=== PATIENT | female | born 1970 ===

== ENCOUNTER 2018-01-16 15:37 | Emergency (ER) | payer MEDICAID ==
[2018-01-16 15:37] VITALS: BMI 28.1
[2018-01-16 16:10] VITALS: BP 146/79; PULSE 94; RESP 18; TEMP 99.6; O2SAT 98
--- NOTE | 2018-01-16 16:36 | ED PDOC ---
HPI: General Adult Time Seen by Provider: 01/16/18 16:14 Chief Complaint (Nursing): Flu-like Symptoms Chief Complaint (Provider): Flu like symptoms History Per: Patient Additional Complaint(s): Pt is a 47 yo female, denies any PMH, presents to ED with c/o headache, fever, bodyaches for 3 days. No medications taken for symptomatic relief thus far. Past Medical History Reviewed: Nursing Documentation, Vital Signs Vital Signs: Last Vital Signs Temp 99.6 F 01/16/18 16:08 Pulse 94 H 01/16/18 16:08 Resp 18 01/16/18 16:08 BP 146/79 01/16/18 16:08 Pulse Ox 98 01/17/18 22:12 - Medical History PMH: No Chronic Diseases - Surgical History Surgical History: - Family History Family History: States: Stroke, [place], Hypertension - Living Arrangements Living Arrangements: With Family - Social History Current smoker - smoking cessation education provided: No Alcohol: Social Drugs: Denies - Home Medications Home Medications: Ambulatory Orders Medication Instructions Recorded Oseltamivir [Tamiflu] 75 mg PO BID 5 Days cap 01/16/18 - Allergies Allergies/Adverse Reactions: Allergies Allergy/AdvReac Type Severity Reaction Status Date / Time peanut Allergy SHORTNESS Verified 01/16/18 16:07 OF BREATH Penicillins Allergy RASH Verified 01/16/18 16:07 Review of Systems ROS Statement: Except As Marked, All Systems Reviewed And Found Negative Constitutional: Positive for: Fever ENT: Positive for: Nose Congestion Respiratory: Positive for: Cough Physical Exam - Reviewed Nursing Documentation Reviewed: Yes Vital Signs Reviewed: Yes - Physical Exam Appears: Positive for: Well, Non-toxic, No Acute Distress Head Exam: Positive for: ATRAUMATIC, NORMAL INSPECTION, NORMOCEPHALIC Skin: Positive for: Normal Color, Warm, DRY Eye Exam: Positive for: EOMI, Normal appearance, PERRL ENT: Positive for: Normal ENT Inspection Neck: Positive for: Normal, Painless ROM Cardiovascular/Chest: Positive for: Regular Rate, Rhythm Respiratory: Positive for: CNT, Normal Breath Sounds Gastrointestinal/Abdominal: Positive for: Normal Exam, Bowel Sounds, Soft Back: Positive for: Normal Inspection Extremity: Positive for: Normal ROM Neurologic/Psych: Positive for: Alert, Oriented - ECG O2 Sat by Pulse Oximetry: 98 Medical Decision Making Medical Decision Making: CXR: SHAMEKA as read bby PA-C Pt aferbile, antipyretics withheld Disposition - Clinical Impression Clinical Impression: Influenza - Disposition Disposition: Routine/Home Disposition Time: 17:00 Condition: STABLE Prescriptions: Oseltamivir [Tamiflu] 75 mg PO BID 5 Days cap Instructions: Flu Forms: [employer] (Kazakh), [facility] ED School/Work Excuse - POA Present On Arrival: None
--- NOTE | 2018-01-16 17:04 | RAD ---
HISTORY: fever and cough COMPARISON: No prior. TECHNIQUE: Chest PA and lateral FINDINGS: LUNGS: No active pulmonary disease. PLEURA: No significant pleural effusion identified. No pneumothorax apparent. CARDIOVASCULAR: Normal. OSSEOUS STRUCTURES: No significant abnormalities. VISUALIZED UPPER ABDOMEN: Normal. OTHER FINDINGS: None. IMPRESSION: No active disease.
== END 2018-01-16 17:50 | disposition home or self-care (01) ==
LOC: H.ER 15:37
DX: J11.1 Influenza due to unidentified influenza virus with other respiratory manifestations (principal); Z88.0 Allergy status to penicillin

== ENCOUNTER 2018-04-04 09:01 | Emergency (ER) | payer MEDICAID ==
[2018-04-04 09:05] VITALS: BMI 27.9
[2018-04-04 09:06] VITALS: BP 121/76; PULSE 78; TEMP 98.1; O2SAT 97
[2018-04-04 09:14] VITALS: RESP 18
[2018-04-04] MEDS ORDERED: Sodium Chloride 0.9% 1,000 ML IV STA (09:29)
[2018-04-04 10:02] LABS: BASO % 0.3 % (0.0-2.0); EOS % 0.6 % (0.0-4.0); HEMOGLOBIN 13.2 g/dL (12.0-16.0); LYMPH # 1.5 K/uL (1.0-4.3); LYMPH % 19.5 % (20.0-40.0); MEAN CELL VOLUME 90.6 fl (81.0-99.0); MEAN CORPUSCULAR HGB CONC 34.3 g/dL (33.0-37.0); MEAN PLATELET VOLUME 8.7 fl (7.2-11.7); MONO # 0.6 K/uL (0.0-0.8); MONO % 7.4 % (0.0-10.0); NEUT # 5.7 K/uL (1.8-7.0); NEUT % 72.2 % (50.0-75.0); NRBC % 0.1 % (0.0-0.0); RBC 4.26 Mil/uL (3.80-5.20); RED CELL DISTRIBUTION WIDTH 13.1 % (11.5-14.5); WHITE BLOOD COUNT 7.8 K/uL (4.8-10.8)
--- NOTE | 2018-04-04 10:08 | ED PDOC ---
HPI: Headache Time Seen by Provider: 04/04/18 09:16 Chief Complaint (Nursing): GI Problem History Per: Patient History/Exam Limitations: no limitations Onset/Duration Of Symptoms: Other (x since last night) Current Symptoms Are (Timing): Still Present Additional Complaint(s): 47-year-old female presents to ED with left-sided headache since last night associated with nausea and vomiting. (-) fever, (-) photophobia, (-) visual disturbance. Denies abdominal pain or diarrhea. PMD: Ashkan Blunt Past Medical History Reviewed: Historical Data, Nursing Documentation, Vital Signs Vital Signs: Last Vital Signs Temp 98.1 F 04/04/18 09:05 Pulse 78 04/04/18 09:05 Resp 18 04/04/18 09:11 BP 121/76 04/04/18 09:05 Pulse Ox 97 04/04/18 09:05 - Surgical History Surgical History: - Family History Family History: States: Stroke, [place], Hypertension - Home Medications Home Medications: Ambulatory Orders Medication Instructions Recorded Oseltamivir [Tamiflu] 75 mg PO BID 5 Days cap 01/16/18 Ondansetron [Zofran] 4 mg PO Q8H #10 tab 04/04/18 - Allergies Allergies/Adverse Reactions: Allergies Allergy/AdvReac Type Severity Reaction Status Date / Time peanut Allergy SHORTNESS Verified 04/04/18 09:11 OF BREATH Penicillins Allergy RASH Verified 04/04/18 09:11 Review of Systems ROS Statement: Except As Marked, All Systems Reviewed And Found Negative Constitutional: Negative for: Fever Eyes: Negative for: Other (photophobia, visual disturbance) Gastrointestinal: Positive for: Nausea, Vomiting. Negative for: Abdominal Pain , Diarrhea Neurological: Positive for: Headache (left-sided) Physical Exam - Reviewed Nursing Documentation Reviewed: Yes Vital Signs Reviewed: Yes - Physical Exam Appears: Positive for: Well Head Exam: Positive for: NORMAL INSPECTION (no facial or temporal tenderness) Eye Exam: Positive for: Normal appearance, EOMI, PERRL Neck: Positive for: Supple Cardiovascular/Chest: Positive for: Regular Rate, Rhythm Respiratory: Positive for: Normal Breath Sounds (Lungs clear). Negative for: Respiratory Distress Gastrointestinal/Abdominal: Positive for: Normal Exam Back: Positive for: Normal Inspection Extremity: Positive for: Normal ROM. Negative for: Deformity, Swelling Neurologic/Psych: Positive for: Alert, Oriented (x 3). Negative for: Motor/ Sensory Deficits - Laboratory Results Result Diagrams: 04/04/18 09:45 04/04/18 09:45 - ECG O2 Sat by Pulse Oximetry: 97 (RA) Pulse Ox Interpretation: Normal - Progress Re-evaluation Time: 11:36 Condition: Improved Medical Decision Making Medical Decision Making: Time: 09:29 Plan: - CMP - ED Urine - ED Urine Dipstick - CBC (with differentials) - Sodium Chloride 0.9% 1,000 ml IV 100 mls/hr - Reglan 10 mg PO STAT - Toradol 30 mg IVP - Zofran ODT 4 mg IVP Scribe Attestation: Documented by Toby Nguyen, acting as a scribe for Ras Clark MD Provider Scribe Attestation: All medical record entries made by the Scribe were at my direction and personally dictated by me. I have reviewed the chart and agree that the record accurately reflects my personal performance of the history, physical exam, medical decision making, and the department course for this patient. I have also personally directed, reviewed, and agree with the discharge instructions and disposition. Disposition - Clinical Impression Clinical Impression: Viral syndrome - Patient ED Disposition Is Patient to be Admitted: No Counseled Patient/Family Regarding: Studies Performed, Diagnosis, Need For Followup, Rx Given - Disposition Referrals: Ashkan Blunt MD [Family Provider] - Disposition: Routine/Home Disposition Time: 11:37 Condition: FAIR Prescriptions: Ondansetron [Zofran] 4 mg PO Q8H #10 tab Instructions: Viral Syndrome (DC) Forms: [employer] (Malagasy)
[2018-04-04 10:18] LABS: ALB/GLOB RATIO 1.2 (1.0-2.1); ALT/SGPT 73 U/L (9-52); AST/SGOT 50 U/L (14-36); BLOOD UREA NITROGEN 15 mg/dl (7-17); CALCIUM 8.9 mg/dL (8.4-10.2); GFR AFRICAN-AMERICAN > 60; GFR NON-AFRICAN AMERICAN > 60
== END 2018-04-04 11:45 | disposition home or self-care (01) ==
LOC: H.ER 09:01
DX: B34.9 Viral infection, unspecified (principal); Z88.0 Allergy status to penicillin
CPT/HCPCS: 80053; 81025; 85025; 96374; 96375; 99284; J1885; J2405; J7040

== ENCOUNTER 2018-06-15 05:33 | Day surgery (SDC) | payer MEDICAID ==
[2018-06-15 05:33] VITALS: BMI 27.9
--- NOTE | 2018-06-15 06:01 | ED PDOC ---
HPI: Abdomen Time Seen by Provider: 06/15/18 05:49 Chief Complaint (Nursing): Abdominal Pain Additional Complaint(s): Patient with no PMHx presenting with vaginal bleeding x 1 month, states she was bleeding heavily and saw Dr. Gallardo last week and was given progesterone, states she finished the course but the bleeding continued, states a mix of clots and bright red blood, has been changing her pad every hour and it is soaked through. States dizziness and lightheadedness yesterday that resolved. Denies chest pain, shortness of breath, or other symptoms. States her abdomen feels "swollen" and she has cramping pain. No fevers, nausea, vomiting. Past Medical History Reviewed: Historical Data, Nursing Documentation, Vital Signs Vital Signs: Last Vital Signs Temp 98.0 F 06/15/18 05:41 Pulse 77 06/15/18 05:41 Resp 17 06/15/18 05:41 BP 121/74 06/15/18 05:41 Pulse Ox 98 06/15/18 06:02 - Medical History PMH: No Chronic Diseases - Surgical History Surgical History: - Family History Family History: States: Stroke, [place], Hypertension - Home Medications Home Medications: Ambulatory Orders Medication Instructions Recorded Oseltamivir [Tamiflu] 75 mg PO BID 5 Days cap 01/16/18 Ondansetron [Zofran] 4 mg PO Q8H #10 tab 04/04/18 - Allergies Allergies/Adverse Reactions: Allergies Allergy/AdvReac Type Severity Reaction Status Date / Time peanut Allergy SHORTNESS Verified 04/04/18 09:11 OF BREATH Penicillins Allergy RASH Verified 04/04/18 09:11 Review of Systems ROS Statement: Except As Marked, All Systems Reviewed And Found Negative Gastrointestinal: Positive for: Abdominal Pain Genitourinary Female: Positive for: Vaginal Bleeding Physical Exam - Reviewed Nursing Documentation Reviewed: Yes Vital Signs Reviewed: Yes - Physical Exam Appears: Positive for: Well, Non-toxic, No Acute Distress Head Exam: Positive for: ATRAUMATIC, NORMAL INSPECTION, NORMOCEPHALIC Skin: Positive for: Normal Color, Warm, DRY Eye Exam: Positive for: EOMI, Normal appearance, PERRL ENT: Positive for: Normal ENT Inspection Neck: Positive for: Normal, Painless ROM Cardiovascular/Chest: Positive for: Regular Rate, Rhythm Respiratory: Positive for: CNT, Normal Breath Sounds Gastrointestinal/Abdominal: Positive for: Normal Exam, Soft Pelvic Exam: Positive for: Active Bleeding, Blood, Other ([employer]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 Negative for: Discharge, Lesions, Mass, Tender Adnexa, Tender Uterus Back: Positive for: Normal Inspection Extremity: Positive for: Normal ROM Neurologic/Psych: Positive for: Alert, Oriented - Laboratory Results Result Diagrams: 06/15/18 06:05 06/15/18 06:05 - ECG O2 Sat by Pulse Oximetry: 98 Medical Decision Making Medical Decision MakinAM A/P: No PMHx presenting with vaginal bleeding -patient well appearing currently, normal vitals -possibly DUB v. fibroids v. CA, will get labs and discus case with Dr. Gallardo 630AM -case discussed with Dr. Gallardo, given that patient has failed outpatient medical therapy, will require D&C for definitive management for continuous vaginal bleeding Disposition - Clinical Impression Clinical Impression: Dysfunctional uterine bleeding - Patient ED Disposition Is Patient to be Admitted: Yes Discussed With : Sony Gallardo Doctor Will See Patient In The: Hospital - Disposition Disposition Time: 06:30 Condition: FAIR Forms: [employer] (Bengali)
[2018-06-15 06:28] LABS: HEMOGLOBIN 12.8 g/dL (12.0-16.0); MEAN CELL VOLUME 91.8 fl (81.0-99.0); MEAN CORPUSCULAR HEMOGLOBIN 31.4 pg (27.0-31.0); MEAN CORPUSCULAR HGB CONC 34.2 g/dL (33.0-37.0); RBC 4.07 Mil/uL (3.80-5.20); RED CELL DISTRIBUTION WIDTH 13.5 % (11.5-14.5); WHITE BLOOD COUNT 7.7 K/uL (4.8-10.8)
[2018-06-15 06:38] LABS: BLOOD UREA NITROGEN 19 mg/dl (7-17); CALCIUM 9.1 mg/dL (8.4-10.2); GFR AFRICAN-AMERICAN > 60; GFR NON-AFRICAN AMERICAN > 60
[2018-06-15 07:04] LABS: INR 0.9 (0.9-1.2); PARTIAL THROMBOPLASTIN TIME 30.2 Seconds (25.6-37.1); PROTHROMBIN TIME 9.8 Seconds (9.8-13.1)
--- NOTE | 2018-06-15 07:25 | CP.SDSHP ---
Same Day Surgery H & P - History Proposed Procedure: d/C Pre-Op Diagnosis: DUB not responding to med tx - Previous Medical/Surgical History Comments: hx of trigeminal neuralgia Previous Surgical History: c/S; d/C - Allergies Allergies: Allergies peanut Allergy (Verified 04/04/18 09:11) SHORTNESS OF BREATH Penicillins Allergy (Verified 04/04/18 09:11) RASH - Physical Exam General Appearance: well nourished NAD Vital Signs: Vital Signs 06/15/18 06/15/18 05:41 06:46 Temperature 98.0 F Pulse Rate 77 Respiratory 17 Rate Blood Pressure 121/74 O2 Sat by Pulse 98 98 Oximetry Mental Status: Alert & Oriented x3 Heart: WNL Lungs: WNL GI: WNL - {Optional Preform as Required} Breast: WNL Abdomen: Other DRUPAL DEVELOPER: WNL Other Pertinent Findings: old abd scar - Impression Impression: DUB not responding to med treatment - Date & Time Date: 06/15/18 Time: 07:26 Short Stay Discharge - Short Stay Discharge Admitting Diagnosis/Reason for Visit: DYSFUNCTIONAL UTERINE BLEEDING NOT RESPONDING TO Disposition: HOME/ ROUTINE
[2018-06-15] MEDS ORDERED: Midazolam 2 MG/2 ML VIAL ONE (08:05)
[2018-06-15] MEDS ORDERED: Propofol 10 mg/ml Inj (20 ML) ONE (08:05)
[2018-06-15] MEDS ORDERED: Lidocaine 2% Jelly (5 ml) TOP ONE (08:06)
[2018-06-15] MEDS ORDERED: Lidocaine 1% 5ml Abboject IV ONE (08:06)
[2018-06-15] MEDS ORDERED: Ferric Subsulfate Sol(60 mL) ONE (08:32)
[2018-06-15] MEDS ORDERED: Strong Iodine Topical Sol. 5%-10% ONE (08:32)
[2018-06-15] MEDS ORDERED: Lactated Ringer's 1,000 ML IV ONE (09:15)
[2018-06-15] MEDS ORDERED: Oxytocin 10 Units/ml Inj IM ONE (09:38)
[2018-06-15] MEDS ORDERED: Oxytocin 10 Units/ml Inj ONE (09:47)
[2018-06-15] MEDS ORDERED: Lactated Ringer's 1,000 ML IV SCH (10:00)
[2018-06-15] MEDS ORDERED: Oxycodone/Acetaminophen 5/325 mg Tab PO PRN (10:14)
[2018-06-15] MEDS: HYDROmorphone 0.5 mg/0.5 ml ISec IVP PRN ×2 (10:20→10:35)
[2018-06-15 12:43] VITALS: O2SAT 97
--- NOTE | 2018-06-15 13:54 | CP.SDSHP ---
Same Day Surgery H & P - Allergies Allergies: Allergies peanut Allergy (Verified 04/04/18 09:11) SHORTNESS OF BREATH Penicillins Allergy (Verified 04/04/18 09:11) RASH - Physical Exam Vital Signs: Vital Signs 06/15/18 06/15/18 06/15/18 06:46 07:25 09:50 Temperature 98.0 F 97.2 F L Pulse Rate 76 73 Respiratory 16 18 Rate Blood Pressure 118/72 113/66 O2 Sat by Pulse 98 99 99 Oximetry 06/15/18 06/15/18 06/15/18 10:05 10:20 10:35 Temperature Pulse Rate 68 56 L 59 L Respiratory 18 18 18 Rate Blood Pressure 116/62 113/78 104/63 O2 Sat by Pulse 99 99 100 Oximetry 06/15/18 06/15/18 06/15/18 10:50 11:05 11:20 Temperature Pulse Rate 58 L 59 L 57 L Respiratory 18 18 18 Rate Blood Pressure 110/60 105/61 100/63 O2 Sat by Pulse 100 100 100 Oximetry 06/15/18 06/15/18 06/15/18 11:35 11:50 12:05 Temperature 97.2 F L Pulse Rate 59 L 58 L 58 L Respiratory 18 18 18 Rate Blood Pressure 100/60 101/60 100/59 L O2 Sat by Pulse 100 100 100 Oximetry 06/15/18 06/15/18 12:20 12:41 Temperature 97.8 F Pulse Rate 60 Respiratory 18 Rate Blood Pressure 104/66 O2 Sat by Pulse 100 97 Oximetry Short Stay Discharge - Short Stay Discharge Admitting Diagnosis/Reason for Visit: DYSFUNCTIONAL UTERINE BLEEDING NOT RESPONDING TO Follow-up: 2wks in office Additional Instructions (Diet, Activity): pelvic and bed rest Progress Note/Discharge Note with Instructions: tolerated procedure well and recovered well Discussed procedure and findings with pt D/C instructions given
[2018-06-15 15:08] VITALS: BP 102/72; PULSE 66; RESP 20; TEMP 97.6
--- NOTE | 2018-06-16 15:06 | OP ---
PROCEDURE DATE: 06/15/2018 PREOPERATIVE DIAGNOSIS: Dysfunctional uterine bleeding, not responding to medical treatment. POSTOPERATIVE DIAGNOSIS: Dysfunctional uterine bleeding, not responding to medical treatment plus pending pathology report. PROCEDURE PERFORMED: Fractional dilatation and curettage. SURGEON: Sony Gallardo MD. ANESTHESIA USED: General. ANESTHESIOLOGIST: Paulo Avila MD. ESTIMATED BLOOD LOSS: 50 mL. DRAINS USED: None. REPLACEMENT USED: None. FINDINGS: 1. Cervix appears closed, long posterior soft and bleeding per os. 2. Uterus appears slightly enlarged, sounded to 9 cm mobile. 3. No adnexal masses to palpation bilaterally. 4. Fractional dilatation and curettage performed without any complications. DESCRIPTION OF PROCEDURE: The patient was taken to the operating room and placed in the operating table in a supine position. Following induction of general anesthesia, the patient was then replaced in a dorsal lithotomy position. Perineal and genital areas were draped and prepped in the usual sterile manner. At this time, a sterile catheter was then inserted into the bladder and was draining clear fluid. The patient was then examined under anesthesia with some of the above findings. Heavy weighted speculum was then placed in the posterior wall of vagina, thus exposing the cervix. The anterior lip of the cervix was then grasped using the single-tooth tenaculum and retracted superiorly. At this time, the endocervical canal was then curette using Quiana curette. Minimal amount of tissue was obtained and sent to Pathology. The endocervical canal was then dilated using Sanjay dilators in an increasing size manner. Following this, the endometrial cavity was then gently curette using sharp curettage. Moderate amount of tissue was then obtained and sent to pathology for proper pathological evaluation. At this time, the uterus was massaged, contracted well, single-tooth tenaculum that had been applied to the anterior lip of the cervix and then removed. No bleeding noted from the tenaculum site. The patient tolerated the procedure well. There were no complications. She was transferred to the recovery room in satisfactory condition. Sony Gallardo MD
== END 2018-06-15 08:11 | disposition home or self-care (01) ==
LOC: H.ER 05:33 → H.SDS 06:16 → H.ERHOLD 06:16 → UNDOADMIN 06:16 → H.ER 08:11 → H.SDS 08:11 → UNDODISIN 15:10
PROVIDERS: ATTEND Specialist
PROC: 0UDB7ZX Extraction of Endometrium, Via Natural or Artificial Opening, Diagnostic (ICD-10-PCS; principal; 2018-06-15 08:45)
DX: N93.8 Other specified abnormal uterine and vaginal bleeding (principal); G50.0 Trigeminal neuralgia
CPT/HCPCS: 58120; 80048; 81025; 84702; 85027; 85610; 85730; 86850; 86900; 88305; 99285; J1170; J2210; J2250; J2405; J2590; J2704; J2765; J3010; J7030; J7120